=== PATIENT | female | born 1995 | race Caucasian/White ===

== ENCOUNTER 2016-04-08 15:46 | Emergency (ER) | payer SELFPAY ==
[~2016-04-08] VITALS: Ht 180.3 cm; Wt 90.9 kg
[2016-04-08 16:16] VITALS: BP 137/75; PULSE 97; RESP 20; O2SAT 97
[2016-04-08] MEDS ORDERED: Ketorolac 30 mg/mL 2 mL Inj IM ONE (17:50)
--- NOTE | 2016-04-08 18:11 | ED.REPORT ---
HPI-Back Pain Under 40 Date of Service Apr 08, 2016 ED Provider: Rod Parsons PA-C Ellen is an otherwise healthy 20-year-old female with a chief complaint of left -sided back pain. She reports the pain began insidiously 2 days ago and is progressively worsened until she has been unable to walk without assistance. She describes the pain as spastic and intermittent. Denies neurological deficits, radiating pain, urinary symptoms. She denies trauma, heavy lifting or vigorous exercise. Denies fever, diabetes, immunocompromise, immunosuppression, recent surgery, recent infection, IV drug use. Denies saddle anesthesia, bowel/bladder dysfunction. She reports a history of a similar episode on the right side several years ago diagnosed as sciatica. It responded well to muscle relaxers. Nursing Notes Stated Complaint: BACK PAIN Chief Complaint: Back Pain or Injury Nursing Notes Reviewed: Yes Allergies: Coded Allergies: No Known Allergies (Unverified , 04/08/16) Scheduled Prednisone (PredniSONE) 20 Mg Tablet 40 MG PO DAILY Scheduled PRN Cyclobenzaprine (Cyclobenzaprine) 10 Mg Tablet 10 MG PO TID PRN PRN Spasm General Time Seen by MD: 17:35 Chief Complaint Back pain Sudden in Onset?: No Review of Systems Review of Systems Note: Negative unless stated otherwise in history of present illness Physical Exam General: Well appearing, well developed, well nourished, no acute distress. Back: Normal to inspection, tenderness over left SI joint. No midline spinous process tenderness. No CVA tenderness to palpation or percussion. Head: Atraumatic, normocephalic. Eyes: No scleral icterus or injection. No discharge. Vision grossly intact. ENT: Voice clear, hearing grossly intact. Respiratory: Regular rate and rhythm. Breath sounds present, clear to auscultation and equal bilaterally. Cardiovascular: Regular rate and rhythm, without murmur, gallop or rub. No pedal edema. . Skin: Warm and dry. Neurological: Normal gait, toe walk, heel walk, Romberg. Hip flexion, knee extension, ankle dorsiflexion and plantarflexion strength 5/5 B/L. Patellar and Achilles reflexes present and equal B/L. Sensation to sharp touch intact at medial leg, dorsal foot and lateral foot B/L. negative seated straight leg raise , negative seated cross straight leg raise. Psychological: Alert and oriented. Speech appropriate, linear and logical. Behavior appropriate. Initial Vital Signs Vital Signs (First) Date Time Temp Pulse Resp B/P Pulse Ox O2 Delivery O2 Flow Rate FiO2 04/08/16 16:16 36.8 97 20 137/75 97 Room Air Initial VS: Reviewed, Vital signs normal Re-Eval/Medical Decision Med Decision/Clinical Course Otherwise healthy 20-year-old female presents with chief complaint of left lower back pain. She reports that the pain began insidiously 2 days ago and has been worsening to the point where she can no longer walk on her own. She denies neurological symptoms, radiation, urinary symptoms. She reports a similar episode of right-sided pain several years ago diagnosed as sciatica and responded well to cyclobenzaprine. History is reassuring that this is unlikely to be a cauda equina syndrome, cancer or epidural abscess. No indication of trauma. Physical examination is highly reassuring with only mild tenderness over the left SI joint, no CVA tenderness, no neurological deficits. I believe this is musculoskeletal back pain. He responded well to Toradol, acetaminophen , cyclobenzaprine in the emergency department. Patient feels greatly improved and ready for discharge to home. I offered her cyclobenzaprine and prednisone burst as well as instructions for [id number] counter analgesics. Provided primary care follow-up instructions, return precautions Discharge & Departure Impression: Primary Impression: Low back pain Chronicity: acute Back pain laterality: left Sciatica presence: without sciatica Qualified Code: M54.5 - Low back pain Disposition: Home All VS Reviewed: Yes Condition: Stable Patient Instructions: Acute Low Back Pain (ED) Additional Instructions: Evaluation in the emergency department for lower back pain. History and physical are reassuring for emergent neurological condition such as epidural abscess or cauda equina syndrome. History does not suggest that this is likely to be a spinal fracture. Your neurological examination is normal, indicating there is no damage to the nerves in your back. I see no indication to perform imaging tests at this time. Treatment is largely symptomatic. Rest is important, especially for the next couple of days, but avoid total bed rest. Reasonable activity as tolerated is the best. Apply ice to the affected area 4 times a day for 20 minutes over the next 24 hours. After that you will probably find warm compresses most helpful. The pain is best treated with 800 mg of ibuprofen (Advil, Motrin) every 6 hours , or 1000 mg of acetaminophen (Tylenol) every 6 hours. These drugs can be taken at the same time for more severe pain I will prescribe a muscle relaxant called cyclobenzaprine as well. Please do not drive or drink alcohol within 4 hours of taking this medication I will prescribe a short course of steroids to reduce the swelling in the nerves around your back. Most of all be patient: 70-90% of people with injuries presenting like yours will resolve within 7 weeks, even without treatment. Follow-up with your primary care provider in the next week or two to be sure your recovery is progressing as expected. Return the emergency department for new or worsening symptoms such as loss of bowel/bladder control, numbness between your legs, new weakness/numbness or high fever. Referrals: Ronny Erickson DO EDSupervising Provider for APC: Isauro Rogers MD Attending Statement Attending attestation: I saw this patient in conjunction with Rod Parsons PA-C. Patient was discussed in detail and I agree with the workup, evaluation, treatment and disposition. Isauro Reddy MD, MD Apr 08, 2016 18:11 Rod Parsons PA-C Apr 08, 2016 18:33
[2016-04-08] MEDS ORDERED: CYCL10TA9 PO (18:36)
[2016-04-08] MEDS ORDERED: PRE20 PO (18:36)
[2016-04-08 18:45] VITALS: BP 132/68; PULSE 71; RESP 17; O2SAT 99
== END 2016-04-08 18:46 | disposition home or self-care (01) ==
LOC: SED 15:46
DX: M54.5 Low back pain (principal)
CPT/HCPCS: 96372; 99283; J1885